=== PATIENT | male | born 2000 | race Caucasian/White ===

== ENCOUNTER 2023-08-22 08:03 | Outpatient (CLI) | payer OTHER ==
--- NOTE | 2023-08-22 10:52 | XRAY Report ---
PROCEDURE: Shoulder 3 View LT INDICATIONS: PAIN IN LEFT SHOULDER TECHNIQUE: 3 views of the shoulder were acquired. COMPARISON: None. FINDINGS: Bones: No fractures or dislocations. No suspicious bony lesions. Visualized ribs appear intact. Soft tissues: No suspicious soft tissue calcifications. The visualized lungs are within normal limi ts. IMPRESSION: No acute bony abnormality. Reviewed by: Allyson Carvajal MD on 08/22/2023 10:51 AM [facility] Approved by: Allyson Carvajal MD on 08/22/2023 10:51 AM [facility] Station ID: [id number]
== END 2023-08-22 08:04 | disposition home or self-care (01) ==
LOC: DI.N 08:03
PROVIDERS: ATTEND Physician Assistant Medical
DX: M25.512 Pain in left shoulder (principal)

== ENCOUNTER 2023-12-26 10:11 | Outpatient (CLI) | payer OTHER ==
--- NOTE | 2023-12-28 14:56 | MRI Report ---
Shoulder LT WO CLINICAL HISTORY: 23 years of age, Male, L SHOULDER PAIN. Comparison: Correlated with shoulder radiograph on 08/22/2023 Technique: Multiplanar, multisequence MRI of the left shoulder was performed without intravenous con trast. IV Contrast: Not Administered. Findings: Osseous acromial outlet: No significant degenerative changes at the acromioclavicular joint. Type I a cromion on sagittal imaging. No os acromiale. No significant subacromial/subdeltoid bursal fluid. Th ere is a small ganglion cyst inferior to the acromion, measuring 1.3 cm. Rotator cuff muscles and tendons: In the supraspinatus, there is low-grade interstitial tear at the f ootprint (8:11). The infraspinatus is unremarkable. The teres minor is unremarkable. Mild tendinosis of the subscapularis, without tear. Muscles are intact without evidence of atrophy or edema. Labral and capsular structures: Tear of the superior labrum, extending posteriorly to the posterior s uperior labrum. Biceps tendon and anchor: The intra-articular and extra-articular biceps tendon are intact. Osseous and cartilaginous structures: Mild subchondral cystic changes in the humeral head, reactive. There is moderate subchondral cystic changes in the posterior superior glenoid, degenerative. There i s glenoid retroversion. No acute fracture. Miscellaneous: No significant glenohumeral effusion. No intra-articular bodies. The remaining muscl es are normal in bulk without evidence of atrophy or edema. IMPRESSION: 1.Small ganglion cyst inferior to the acromion. 2.Low-grade tear of the supraspinatus. 3.Labral tear. 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 Reviewed by: Shelby Field MD on 12/26/2023 9:25 PM PDT Approved by: Shelby Field MD on 12/26/2023 9:25 PM PDT Station ID: [id number]
== END 2023-12-26 10:12 | disposition home or self-care (01) ==
LOC: DI 10:11
PROVIDERS: ATTEND Nurse Practitioner Family
DX: M75.112 Incomplete rotator cuff tear or rupture of left shoulder, not specified as traumatic (principal); S43.432A Superior glenoid labrum lesion of left shoulder, initial encounter

== ENCOUNTER 2024-03-06 01:48 | Emergency (ER) | payer OTHER ==
--- NOTE | 2024-03-06 02:25 | ED Physician Documentation ---
History of Present Illness - Stated complaint Stated Complaint: VOMITING - Chief complaint Chief Complaint: Abd Pain - History obtained from History obtained from: Patient - Additonal information Additional information: 23yM with history of prior gastric issues p/w 2 episodes of blood streaked vomitus tonight along with nausea. denies fever/chills, diarrhea. he has had episodes of this in the past but not so severe. denies dizziness. Review of Systems Constitutional: denies: Fever, Chills Cardiac: denies: Chest pain / pressure Respiratory: denies: Dyspnea, Cough GI: reports: Abdominal Pain, Nausea, Vomiting, Hematemesis. denies: Diarrhea, Bloody / black stool : denies: Dysuria, Frequency, Hematuria Musculoskeletal: denies: Back pain PD PAST MEDICAL HISTORY - Allergies Allergies/Adverse Reactions: Allergies Allergy/AdvReac Type Severity Reaction Status Date / Time No Known Drug Allergies Allergy Verified 03/06/24 02:04 PD ED PE NORMAL - Vitals Vital signs reviewed: Yes - General General: Alert and oriented X 3, No acute distress, Well developed/nourished - HEENT HEENT: Atraumatic, PERRL, EOMI - Neck Neck: Supple, no meningeal sign - Cardiac Cardiac: RRR - Respiratory Respiratory: No respiratory distress, Clear bilaterally - Abdomen Abdomen: Non tender, Non distended, Other (epigastrium discomfort to palpation) Results - Vitals Vitals: Vital Signs - 24 hr 03/06/24 01:57 Temperature 36.7 C Heart Rate 103 H Respiratory 16 Rate Blood Pressure 137/73 H O2 Saturation 98 Oxygen O2 Source Room air PD Medical Decision Making - ED course ED course: 23yM p/w 2 episodes of blood streaked sputum tonight. patient is difficult historian. his vital signs and exam are relatively benign and he is requesting to go home. GI cocktail ordered. tolerating po. plan to dc home to f/u with pcm. return precautions given. Departure - Departure
[2024-03-06] MEDS: LIDOCAINE VISCOUS 2% 15 ML UDC MM STA (02:42)
[2024-03-06] MEDS: MAG HYDROX/AL HYDROX/SIMETH 30 ML UDC PO STA (02:43)
[2024-03-06] MEDS: diphenhydrAMINE ELIXIR 25 MG/10 ML UDC PO STA (02:43)
[2024-03-06] MEDS: ONDANSETRON ODT 4 MG TABLET TL STA (02:43)
[2024-03-06 02:54] VITALS: BP 123/78; O2SAT 99
== END 2024-03-06 02:53 | disposition home or self-care (01) ==
LOC: ED 01:48
DX: K92.0 Hematemesis (principal); R10.9 Unspecified abdominal pain
CPT/HCPCS: 99283; A9270; Q0162

== ENCOUNTER 2024-04-23 07:00 | Emergency (ER) | payer OTHER ==
[2024-04-23 07:16] VITALS: O2SAT 100
--- NOTE | 2024-04-23 07:40 | ED Physician Documentation ---
History of Present Illness - Stated complaint Stated Complaint: LT SHOULDER DISCOMFORT - Chief complaint Chief Complaint: Ext Problem - History obtained from History obtained from: Patient - History of Present Illness Pain level max: 0 Pain level now: 0 - Additonal information Additional information: Patient is a 24-year-old male who has chronic left shoulder pain. He states he saw an orthopedist from the [facility] on April 21. He states that he was told to get a shoulder brace or a sling. He states he was unsure w here to go so he came to the emergency department to obtain this. He has no other complaints. PD PAST MEDICAL HISTORY - Past Medical History Past Medical History: Yes Musculoskeletal: Other - Past Surgical History Past Surgical History: No - Present Medications Home Medications: Ambulatory Orders Medication Instructions Recorded Confirmed No Known Home Medications 04/23/24 04/23/24 - Allergies Allergies/Adverse Reactions: Allergies Allergy/AdvReac Type Severity Reaction Status Date / Time No Known Drug Allergies Allergy Verified 04/23/24 07:15 - Social History Does the pt smoke?: No Smoking Status: Never smoker Does the pt drink ETOH?: Yes Does the pt have substance abuse?: No - Immunizations Immunizations are current?: Yes - POLST Patient has POLST: No PD ED PE NORMAL - Vitals Vital signs reviewed: Yes - General General: Alert and oriented X 3, No acute distress - Derm Derm: Warm and dry - Neuro Neuro: Alert and oriented X 3 Results - Vitals Vitals: Vital Signs - 24 hr 04/23/24 07:11 Temperature 36.4 C L Heart Rate 55 L Respiratory 12 Rate Blood Pressure 143/85 H O2 Saturation 100 Oxygen O2 Source Room air PD Medical Decision Making - ED course Complexity details: considered differential, d/w patient ED course: Patient here requesting a sling. He has no other complaints. No changes in his chronic shoulder pain. No new injuries. No numbness or tingling. No swelling. Patient was given a sling. [place] [facility] orthopedics for further care. This document was made in part using voice recognition software. While efforts are made to proofread this document, sound alike and grammatical errors may occur. Departure - Departure Disposition: 01 Home, Self Care Clinical Impression: Left shoulder pain Qualifiers: Chronicity: chronic Qualified Code(s): M25.512 - Pain in left shoulder; G89.29 - Other chronic pain Condition: Good Instructions: ED Torn Rotator Cuff Follow-Up: your,doctor in 1 week [Other] Comments: You are given a sling today. You may do better with a shoulder brace off of [employer] or somewhere similar that is more for rotator cuff injuries and shoulder pain. [place]
[2024-04-23 08:00] VITALS: BP 142/85
== END 2024-04-23 07:45 | disposition home or self-care (01) ==
LOC: ED 07:00
DX: M25.512 Pain in left shoulder (principal); G89.29 Other chronic pain
CPT/HCPCS: 99282; 99283